=== PATIENT | female | born 1975 | race Caucasian/White ===

== ENCOUNTER 2017-11-05 03:34 | Emergency (ER) | payer OTHER ==
[~2017-11-05] VITALS: Ht 162.6 cm; Wt 111.3 kg
[2017-11-05 03:37] VITALS: Ht 162.6 cm; Wt 111.3 kg
[2017-11-05 04:41] LABS: PLATELET COUNT 365 x10^3mcL (130-400)
[2017-11-05 04:42] LABS: BASOPHIL % 0 % (0-2)
[2017-11-05 04:56] LABS: CALCIUM 8.6 mg/dL (8.5-10.1); CARBON DIOXIDE 24.6 mmol/L (21-32); CHLORIDE SERUM 102 mmol/L (98-107); CREATININE SERUM 0.8 mg/dL (0.6-1.0); GFR1 > 60 mL/min; GLUCOSE SERUM 131 mg/dL (74-106); POTASSIUM SERUM 3.6 mmol/L (3.5-5.1); SODIUM SERUM 138 mmol/L (136-145)
[2017-11-05 05:10] LABS: ALBUMIN 3.7 g/dL (3.4-5.0); ALKALINE PHOSPHATASE 80 U/L (46-116); ALT/SGPT 39 U/L (14-59); AST/SGOT 30 U/L (15-37); BILIRUBIN TOTAL 0.27 mg/dL (0.20-1.00); TOTAL PROTEIN, SERUM 7.4 g/dL (6.4-8.2)
[2017-11-05 05:58] VITALS: BP 111/70
== END 2017-11-05 05:58 | disposition home or self-care (01) ==
LOC: ED 03:34
PROVIDERS: Emergency Medicine
DX: R00.0 Tachycardia, unspecified (principal); R07.89 Other chest pain; M19.90 Unspecified osteoarthritis, unspecified site; Z88.0 Allergy status to penicillin
CPT/HCPCS: 36415; 83880; J1200

== ENCOUNTER 2018-11-06 00:14 | Emergency (ER) | payer OTHER ==
[~2018-11-06] VITALS: Ht 157.5 cm; Wt 114.3 kg
[2018-11-06 00:22] VITALS: BP 139/95; Ht 157.5 cm; Wt 114.3 kg
== END 2018-11-06 01:57 | disposition home or self-care (01) ==
LOC: ED 00:14
DX: J06.9 Acute upper respiratory infection, unspecified (principal); M19.90 Unspecified osteoarthritis, unspecified site; Z88.0 Allergy status to penicillin